=== PATIENT | female | born 1965 | race Caucasian/White ===

== ENCOUNTER 2017-03-30 10:18 | Outpatient (CLI) | payer OTHER ==
--- OUTSIDE RECORDS SUMMARY | 2017-03-30 10:22 | XMS | Clinical Summary ---
:1965 Author Organization [facility] Address [address] [place] [address] Phone Care Team Providers Name Role Phone , Primary Care Provider Unavailable Allergies Not on File Current Medications Not on file Active Problems Not on file Social History Tobacco Use Types Packs/Day Years Used Date Never Assessed Sex Assigned at Date Recorded Not on file Last Filed Vital Signs Not on file Plan of Treatment Not on file Results Not on filefrom Last 3 Months
--- NOTE | 2017-03-30 13:26 | MRI ---
MRI OF THE RIGHT SHOULDER WITHOUT CONTRAST: INDICATIONS: History of internal derangement of the right shoulder. COMPARISON: MRI of the right shoulder dated 03/21/2009 and radiograph of the right shoulder dated 03/07/2017. FINDINGS: There is post surgical change of a prior rotator cuff repair. There is moderate tendinosis of the s upraspinatus and infraspinatus. There is prominent susceptibility artifact seen within the subcutan eous tissues overlying the deltoid, as well as within the subdeltoid/subacromial space. There is a mild amount of fluid in the subacromial/subdeltoid space. No definite full thickness tear is eviden t. There is a small area of suspected intratendinous delamination involving the anterior infraspina tus, seen on sagittal image 10 of series 5, measuring 3 mm in its greatest AP dimension. No muscula r atrophy is evident. The subscapularis is intact. The biceps tendon is located. The biceps ancho r appears within normal limits. The glenohumeral joint is normal appearing. There is mild acromioc lavicular joint osteoarthrosis. IMPRESSION: 1. Post surgical change of rotator cuff repair. There is no overt evidence to suggest a recurrent tear. There is prominent tendinosis of the supraspinatus and infraspinatus. There is a small focus of intratendinous delamination seen involving the anterior infraspinatus-musculotendinous junction. No muscular atrophy is evident. 2. Fluid in the subacromial/subdeltoid space can be seen with mild bursitis. 3. Mild acromioclavicular joint osteoarthrosis. POS: [facility]
--- NOTE | 2017-03-30 13:32 | MRI ---
MRI OF THE LEFT SHOULDER WITHOUT CONTRAST: Date: 03/30/17 INDICATION: Internal derangement of the left shoulder. COMPARISON: Prior radiographs of the left shoulder dated 03/07/17. FINDINGS: There is a partial thickness articular surface tear involving the anterior to mid supraspinatus at t he footprint measuring 1.3 x 0.9 cm. This involves approximately 75% of the tendon thickness on imag e 7 of series 3. There is moderate supraspinatus and infraspinatus tendinosis. Biceps tendon is loca benjamin. There is moderate interarticular biceps tendinosis. Biceps anchor appears within normal limits. There is some moderate tendinosis of the subscapularis tendon. There is a small amount of fluid in the subacromial/subdeltoid space. There is mild AC joint osteoarthrosis. There are a few mildly prom inent lymph nodes within the left axillary region, none of which are pathologically enlarged based o n size criteria. The largest measures 8.0 mm in its greatest short axis dimension. IMPRESSION: 1. High grade partial thickness articular surface tear of the anterior mid supraspinatus at the sapna tprint. 2. Moderate supraspinatus, infraspinatus, and subscapularis tendinosis. 3. Moderate biceps tendinosis. 4. Mild AC joint osteoarthrosis. 5. Mild amount of fluid in the subacromial/subdeltoid space. POS: [facility]
== END 2017-03-30 10:19 | disposition home or self-care (01) ==
LOC: MRI 10:18
PROVIDERS: ATTEND Family Medicine
DX: S80.02XA Contusion of left knee, initial encounter (principal); M24.811 Other specific joint derangements of right shoulder, not elsewhere classified; M75.102 Unspecified rotator cuff tear or rupture of left shoulder, not specified as traumatic; M24.812 Other specific joint derangements of left shoulder, not elsewhere classified; M19.012 Primary osteoarthritis, left shoulder; M19.011 Primary osteoarthritis, right shoulder; Z98.890 Other specified postprocedural states

== ENCOUNTER 2017-05-12 13:39 | Outpatient (CLI) | payer OTHER ==
--- NOTE | 2017-05-13 08:47 | MRI ---
MRI OF LEFT KNEE PERFORMED WITHOUT CONTRAST ENHANCEMENT: HISTORY: Fall in February with persistent knee pain. FINDINGS: The anterior as well as posterior cruciate ligaments are intact. There is a nondisplaced obliquely oriented posterior horn medial meniscus tear present. The lateral meniscus has a normal shape and appearance. The medial and lateral collateral ligaments and iliotibial band regions are unremarkable. The patellar articular cartilage is intact. Medial and lateral patellar retinaculum and quadriceps a nd patellar tendons are unremarkable. IMPRESSION: Posterior horn medial meniscus tear. POS: [facility]
== END 2017-05-12 13:40 | disposition home or self-care (01) ==
LOC: SCSMRI 13:39
PROVIDERS: ATTEND Orthopaedic Surgery
DX: M25.562 Pain in left knee (principal); S83.242A Other tear of medial meniscus, current injury, left knee, initial encounter

== ENCOUNTER 2017-06-13 13:12 | Emergency (ER) | payer BC, OTHER ==
--- NOTE | 2017-06-13 14:14 | RAD ---
FOUR VIEWS OF THE RIGHT KNEE: 06/13/2017 COMPARISON: None. HISTORY: Twisted right knee 4 days ago. Severe pain. FINDINGS: There is a probable non-specific small knee joint effusion. There is minimal posterior patellar oste ophyte formation involving the superior pole. There is mild osteophyte formation involving the media l tibial plateau and medial femoral condyle. No displaced fracture or evidence of dislocation is see n. IMPRESSION: Probable nonspecific small volume knee joint effusion with no displaced fracture or dislocation seen. POS: [facility]
== END 2017-06-13 14:38 | disposition left against medical advice (07) ==
LOC: SCSER 13:12
DX: M25.561 Pain in right knee (principal); Z79.899 Other long term (current) drug therapy

== ENCOUNTER 2018-07-05 06:13 | Day surgery (SDC) | payer OTHER ==
--- NOTE | 2018-07-04 09:09 | HP ---
HISTORY OF PRESENT ILLNESS: The patient is a 53-year-old female, who injured her left knee in a twisting injury, had a fall at work in February 2017. She has had persistent problems with pain, popping, and sensation of instability. She has had persistent symptoms despite rest, restriction of activities, anti-inflammatory medications, cortisone injection, and physical therapy. She initially tried to avoid surgical treatment because she was the sole provider for her granddaughter. She has had persistent symptoms and is admitted at this time for arthroscopic evaluation of her left knee. PAST HISTORY: The patient also injured her left shoulder during her fall and has sustained a partial rotator cuff repair which is being managed conservatively at the present time. She has had previous right rotator cuff surgery. She also has history of glaucoma and hypertension. CURRENT MEDICATIONS: Include: 1. Lisinopril. 2. Ibuprofen. 3. Hydrocodone. ALLERGIES: SHE IS ALLERGIC TO CODEINE. FAMILY HISTORY: Otherwise unremarkable. SOCIAL HISTORY: Otherwise unremarkable. REVIEW OF SYSTEMS: Otherwise unremarkable. PHYSICAL EXAMINATION: GENERAL: Healthy female. HEENT: Unremarkable. NECK: Supple. CHEST: Clear. HEART: Regular rate and rhythm. ABDOMEN: Soft, nontender. PELVIC: Deferred. RECTAL: Deferred. BREAST: Deferred. EXTREMITIES: Pertinent findings related to left knee. There is no effusion. There is no significant swelling. There is normal alignment. There is tenderness over the medial joint line. There is pain with Pilar's maneuver. Range of motion is 0-120 degrees. There is pain with further flexion. There is no instability. NEUROVASCULAR: Exam is intact. There are palpable distal pulses. There is no pain with range of motion of the left hip. IMAGING DATA: X-rays of the left knee are negative except for a small sclerotic area in the distal lateral femoral condyle of unclear significance. MRI scan of the left knee reveals a tear of the posterior horn of the medial meniscus. IMPRESSION: Internal derangement of left knee with medial meniscal tear. PLAN: Arthroscopy of left knee with partial medial meniscectomy and/or debridement and shaving. The nature of the surgery, length, recovery, and potential complications such as infection, loss of motion, incomplete relief, thromboembolic phenomenon, neurovascular injury, posttraumatic degenerative arthritis, recurrent tear, need for additional treatment, and repeat surgery have been discussed in detail. Job ID: [id number]
[2018-07-04 11:01] VITALS: BMI 28.8
[2018-07-05] MEDS ORDERED: CEFAZOLIN 2 GM/50 ML BAG ONE (06:24)
[2018-07-05] MEDS ORDERED: Bupivacaine HCl 0.5%/Epinephrine 1:200,000/PF 30 ml Vial ONE (06:51)
[2018-07-05 07:03] LABS: #Basophils 0.1 thou/uL (0.0-0.2); #Eosinphils 0.3 thou/uL (0.0-0.7); #Lymphocytes 2.3 thou/uL (1.20-3.40); #Monocytes 0.5 thou/uL (0.11-0.59); #Neutrophils 4.7 thou/uL (1.40-6.50); %Basophils 0.7 % (0.0-1.0); %Eosinophils 4.1 % (0.0-10.0); %Lymphocytes 28.8 % (21.0-51.0); %Monocytes 5.8 % (0.0-10.0); %Neutrophils 60.6 % (42.0-75.0); Mean Corpuscular HGB CONC 33.8 g/dL (32.0-36.0); Mean Corpuscular Hemoglobin 30.3 pg (27.0-31.0); Mean Corpuscular Volume 89.8 fL (78.0-98.0); Mean Platelet Volume 8.6 fL (7.4-10.4); Platelet Count 270 thou/uL (130-400); RBC Distribution Width 11.8 % (11.5-14.5); Red Blood Cell (RBC) Count 4.61 mill/uL (4.20-5.40); White Blood Cell (WBC) Count 7.8 thou/uL (4.8-10.8)
[2018-07-05] MEDS ORDERED: Midazolam HCl 2 mg/2 ml Vial ONE ×2 (07:17→07:45)
[2018-07-05] MEDS ORDERED: Metoprolol Tartrate 5 MG/5 ML VIAL ONE (07:18)
[2018-07-05 07:19] LABS: Anion Gap 15 mmol/L (10-20); BUN (Urea Nitrogen) 18 mg/dL (9.8-20.1); Calc. Creatinine Clearance 82 mL/min (70-130); Calcium 9.3 mg/dL (7.8-10.44); Carbon Dioxide 23 mmol/L (22-29); Chloride 101 mmol/L (98-107); Estimated GFR-MDRD 61; Glucose 98 mg/dL (70-105); Sodium 136 mmol/L (136-145)
[2018-07-05 07:26] LABS: Potassium 2.7 mmol/L (3.5-5.1)
[2018-07-05] MEDS ORDERED: Fentanyl 100 MCG/2 ML VIAL ONE ×2 (07:45→09:20)
[2018-07-05] MEDS ORDERED: HYDROcodone/Acetaminophen 5/325 mg Tablet ONE (11:30)
--- NOTE | 2018-07-05 13:02 | EKG ---
Test Reason : PREOP Blood Pressure : / mmHG Vent. Rate : 091 BPM Atrial Rate : 091 BPM P-R Int : 162 ms QRS Dur : 084 ms QT Int : 362 ms P-R-T Axes : 084 070 056 degrees QTc Int : 445 ms Normal sinus rhythm Normal ECG When compared with ECG of 02-JUN-2009 14:30, QT has lengthened Confirmed by DR. Olivia FRIAS ([id number]) on 07/05/2018 1:02:12 PM Referred By: JIL Confirmed By:DR. Olivia FRIAS
[2018-07-05] MEDS ORDERED: PROPOFOL 200 MG/20 ML VIAL ONE (15:05)
[2018-07-05] MEDS ORDERED: PHENYLEPHRINE-NS 100 MCG/ML 10 ML SYRINGE ONE (15:05)
[2018-07-05] MEDS ORDERED: Lidocaine 1% PF 5 ML VIAL ONE (15:05)
[2018-07-05] MEDS ORDERED: Dexamethasone 20 MG/5 ML VIAL ONE (15:05)
[2018-07-05] MEDS ORDERED: Ondansetron PF 4 MG/2 ML Vial ONE (15:05)
--- NOTE | 2018-07-05 15:25 | OP ---
DATE OF PROCEDURE: 07/05/2018 ANESTHESIA: General. PREOPERATIVE DIAGNOSIS: Medial meniscal tear, left knee. POSTOPERATIVE DIAGNOSIS: Normal exam (apparent healed medial meniscal tear). PROCEDURE PERFORMED: Diagnostic arthroscopy, left knee. OPERATIVE FINDINGS: Examination under anesthesia revealed the knee to be stable. On arthroscopy, there was some very minimal synovitis. Patellofemoral joint appeared to be normal. Medial compartment and medial meniscus were normal. I probed the meniscus thoroughly and could not see a tear. There was a slight irregularity on the superior surface of the meniscus, that could be consistent with a healed tear, but could not demonstrate a full-thickness tear. I could not totally rule out a partial tear or intrasubstance degeneration, but meniscus appeared to be totally normal by appearance except for some very minimal scoring on the superior surface. The ACL was intact. Lateral meniscus and lateral compartment were normal. INDICATIONS: This patient injured her knee over one year ago in a fall at work. She has had persistent problems despite conservative treatment. MRI scan performed shortly after the injury revealed a medial meniscal tear. Treatment was delayed while conservative treatment was planned and she also delayed treatment, obtaining custody of her granddaughter. In the interim, she still had some problems and pain, but no repeat injury. DESCRIPTION OF PROCEDURE: After satisfactory anesthesia was induced in the supine position, the patient was placed in a leg martinez and prepped and draped in routine manner. The left leg was elevated and exsanguinated with an Esmarch bandage and tourniquet was inflated to 300 mmHg. Tristan arthroscope was induced through the anterolateral portal, probed through an anteromedial portal, and inflow and outflow accomplished through the scope using a [employer] arthroscopy pump. Arthroscopy was carried out and the above findings were noted. All findings were documented with video printer and hard copies were made. We spent some extra time by probing the medial meniscus looking in all compartments to make sure I could not find any additional pathology. The scope was introduced in the anterior medial compartment and all compartments again visualized and both menisci probed. Again, I cannot demonstrate a tear. The knee was then copiously irrigated through the scope and all instruments were withdrawn. 20 mL of 0.5% Marcaine with epinephrine was instilled into the knee joint and additional 10 mL injected about the portal sites. Portal sites were closed with 4-0 nylon and a sterile bulky compressive dressing was applied and the tourniquet deflated after 18 minutes. The foot promptly pinked up. The patient was taken and taken to the recovery room in stable condition. There were no apparent intraoperative complications. The estimated blood loss was negligible. The patient will be discharged home in satisfactory condition to use ice and elevation, use of crutches, home exercise program with Physical Therapy Department. She was given written wound care instructions and a prescription for [place] 7.5 for pain, 30 tablets. She will be rechecked in my office in 10 to 14 days or sooner if there are any problems prior to that time. Job ID: [id number]
== END 2018-07-05 11:57 | disposition home or self-care (01) ==
LOC: SDC 06:13
PROVIDERS: ATTEND Orthopaedic Surgery
PROC: 0SJD4ZZ Inspection of Left Knee Joint, Percutaneous Endoscopic Approach (ICD-10-PCS; principal; 2018-07-05)
DX: M25.562 Pain in left knee (principal); M23.52 Chronic instability of knee, left knee; I10 Essential (primary) hypertension; Z79.899 Other long term (current) drug therapy; Z88.5 Allergy status to narcotic agent; Z98.890 Other specified postprocedural states
CPT/HCPCS: 80048; 85025; 93005; 93010; 96374; J0670; J1100; J2001; J2250; J2405; J2704; J3010